=== PATIENT | male | born 1935 | race Caucasian/White ===

== ENCOUNTER 2020-06-19 05:16 | Outpatient (RCR) | payer MEDICARE ==
[~2020-06-19] VITALS: Ht 177 cm; Wt 77.2 kg
[2020-06-19] MEDS ORDERED: LOSA25TA41 PO (12:32)
== END 2020-06-19 12:42 | disposition home or self-care (01) ==
LOC: PREOP 05:16
PROVIDERS: ATTEND Surgery
DX: Z01.818 Encounter for other preprocedural examination (principal)

== ENCOUNTER → 2020-06-23 | Outpatient (CLI) | payer MEDICARE ==
[~2020-06-23] MED LIST: LOSA25TA41 PO
== END ==
LOC: LAB FS 10:30
PROVIDERS: ATTEND Surgery
DX: Z01.812 Encounter for preprocedural laboratory examination (principal); Z20.828 Contact with and (suspected) exposure to other viral communicable diseases; Z86.010 Personal history of colon polyps
CPT/HCPCS: 87635

== ENCOUNTER 2020-06-26 07:40 | Day surgery (SDC) | payer MEDICARE ==
[~2020-06-26] VITALS: Ht 177 cm; Wt 77.2 kg
[2020-06-26] VITALS (10 sets, daily range): BP systolic 128–175; BP diastolic 8–95
[2020-06-26] MEDS ORDERED: LACTATED RINGERS 1,000 ML IV PRN (08:00)
[2020-06-26] MEDS ORDERED: LACTATED RINGERS 1,000 ML IV ONE (08:05)
--- NOTE | 2020-06-26 08:20 | Progress Note-Pre Operative ---
Pre-Operative Progress Note H&P Reviewed The H&P was reviewed, patient examined and no changes noted. Time Seen by Provider: 08:16 Date H&P Reviewed: Jun 26, 2020 Time H&P Reviewed: 08:14 Pre-Operative Diagnosis: Hx of colon polyps RAND WHALEY DO Jun 26, 2020 08:20
[2020-06-26] MEDS ORDERED: PROPOFOL INJECTION 50 ML IV ONE (09:01)
[2020-06-26] MEDS ORDERED: MIDAZOLAM 2 MG/2 ML (VERSED) VIAL ONE (09:02)
--- NOTE | 2020-06-26 09:38 | Progress Note-Post Operative ---
Post-Operative Progess Note Surgeon (s)/Assistant Account Manager (s) Surgeon RAND WHALEY DO Assistant Account Manager: EM Loya Pre-Operative Diagnosis Hx of colon polyps Post-Operative Diagnosis polyps diverticula int hemorrhoids Procedure & Operative Findings Date of Procedure 06/26/20 Procedure Performed/Findings colon with snare Anesthesia Type IV sedation by ARCHERY INSTRUCTOR Estimated Blood Loss Estimated blood loss (mL): scant Specimens/Packing Specimens Removed sigmoid polyp transverse colon polyp RAND WHALEY DO Jun 26, 2020 09:38
--- NOTE | 2020-06-26 09:39 | Endoscopy Discharge Instruct ---
Endo Procedure/Findings Findings 1.: Polyp 2.: Diverticulosis 3.: Internal Hemorrhoids Discharge Instructions - Activity: You might feel a little sleepy until tomorrow. This is due to the medicine you received to relax you. Until tomorrow, you should: NOT drive a car, operate machinery or power tools. NOT drink any alcoholic beverages. NOT make any important decisions or sign importortant papers. Do not return to work until tomorrow, unless otherwise instructed. Resume previous activities tomorrow. Diet: Start by taking liquids. If you tolerate liquids, advance to solid food. 1.: Colonscopy in 5 years Notify Physician - If you experience excessive bleeding, unusual abdominal pain, fever, or chest pain, contact your doctor immediately. RAND WHALEY DO Jun 26, 2020 09:39
--- NOTE | 2020-06-26 10:22 | Anesthesia-General Post-Op ---
MAC Patient Condition Mental Status/LOC: Same as Preop Cardiovascular: Satisfactory Nausea/Vomiting: Absent Respiratory: Satisfactory Pain: Controlled Complications: Absent Post Op Complications Complications None Follow Up Care/Instructions Patient Instructions None needed. Anesthesiology Discharge Order Discharge Order Patient is doing well, no complaints, stable vital signs, no apparent adverse anesthesia problems. No complications reported per nursing. MARIIA SIDDIQI CRNA Jun 26, 2020 10:22
--- NOTE | 2020-06-26 15:18 | OPERATIVE REPORT ---
DATE OF SERVICE: PREOPERATIVE DIAGNOSIS: History of colon polyps. POSTOPERATIVE DIAGNOSES: Colon polyps, diverticula, internal hemorrhoids. PROCEDURE: Colonoscopy with snare polypectomy. SURGEON: Ash Whitmore DO CENTER RECEPTIONIST: Juani Montoya MS3. ANESTHESIA: IV sedation by the PHYSICAL THERAPY AIDE. SPECIMEN: Polyp from the sigmoid colon and one polyp from the transverse colon. BLOOD LOSS: Scant. FLUIDS: Per anesthesia. POSTOPERATIVE CONDITION: Stable. INDICATION FOR PROCEDURE: The patient is an 85-year-old male, who has a history of colon polyps and needs a screening. FINDINGS: The patient had two colon polyps, one small and one larger one removed and sent to pathology. PROCEDURE NOTE: After informed consent was obtained, the patient was brought to the endoscopy suite, placed in bed in left lateral decubitus position. He was administered IV sedation by the PHYSICAL THERAPY AIDE, who then monitored his vitals the entire time, heart rate, blood pressure and pulse ox. Scope was inserted, pushed all the way about [address] in, noted a small polyp in the sigmoid colon, did snare polypectomy, hot snare and then continued up and in the transverse colon, saw another polyp, this was slightly larger, did another snare polypectomy of this, removed this and then continued all the way up to the cecum, able to get into terminal ileum, took a picture and noted the appendiceal orifice and then slowly withdrew the scope insufflating to look circumferentially at the smith, looking the cecum, up the ascending colon to the hepatic flexure, then down the transverse colon, splenic flexure, into the descending colon and sigmoid through the lower portion of the descending colon and sigmoid he had a lot of diverticula and then continued down into the rectum, retroflexed in rectal vault. He had some grade II internal hemorrhoids, took a picture of this. The scope was then removed. The patient tolerated the procedure and he was recovered in endoscopy suite. Job ID: [id number] DocumentID: [id number] Dictated Date: 06/26/2020 09:52:17 Director Search Marketing Strategies Date: 06/26/2020 15:17:32 Dictated By: ASH WHITMORE DO
== END 2020-06-26 10:30 | disposition home or self-care (01) ==
LOC: ENDO 07:40
PROVIDERS: ATTEND Surgery
DX: Z12.11 Encounter for screening for malignant neoplasm of colon (principal); D12.3 Benign neoplasm of transverse colon; D12.5 Benign neoplasm of sigmoid colon; K64.8 Other hemorrhoids; K57.30 Diverticulosis of large intestine without perforation or abscess without bleeding; I10 Essential (primary) hypertension; Z79.899 Other long term (current) drug therapy; Z86.010 Personal history of colon polyps
CPT/HCPCS: 88305